=== PATIENT | male | born 2005 | race Caucasian/White ===

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

== ENCOUNTER 2024-01-24 19:32 | Emergency (ER) | payer OTHER ==
[2024-01-24 19:47] VITALS: BP 131/63; PULSE 86; RESP 16; TEMP 98.7; BMI 27.3
[2024-01-24] MEDS ORDERED: ACETAMINOPHEN 1000 MG/100 ML BAG IVPB ONE (20:02)
[2024-01-24] MEDS ORDERED: ACETAMINOPHEN 325 MG TABLET (FP) ONE (20:15)
[2024-01-24] MEDS: ACETAMINOPHEN 325 MG TABLET (FP) PO ONE (20:19)
== END 2024-01-24 20:49 | disposition home or self-care (01) ==
LOC: JER 19:32
DX: S83.005A Unspecified dislocation of left patella, initial encounter (principal); M25.562 Pain in left knee; X50.0XXA Overexertion from strenuous movement or load, initial encounter; Y93.41 Activity, dancing
CPT/HCPCS: 73562-TC-LT-FY; 99283-25